=== PATIENT | male | born 1945 | race Caucasian/White ===

== ENCOUNTER 2017-07-28 09:16 | Inpatient (IN) | payer MEDICARE, OTHER ==
[~2017-07-28 09:16] MED LIST: CEFAZOLIN 1 GM INJ; NALOXONE (0.4 MG/ML) INJ IV; SUCCINYLCHOLINE CHLORIDE 100 MG/5 ML SYG IV
[2017-07-28] MEDS ORDERED: NEOSTIGMINE 3 MG/3 ML SYRINGE (09:48)
[2017-07-28] MEDS ORDERED: PROPOFOL 20 ML (09:48)
[2017-07-28] MEDS ORDERED: LIDOCAINE 2% (SDV) 5 ML INJ (09:49)
[2017-07-28] MEDS ORDERED: GLYCOPYRROLATE 0.4 MG INJ (09:49)
[2017-07-28] MEDS ORDERED: ROCURONIUM 50 MG INJ (09:49)
[2017-07-28] MEDS ORDERED: DEXAMETHASONE 4 MG/ML 1 ML INJ (09:49)
[2017-07-28] MEDS ORDERED: MIDAZOLAM 1 MG/ML 2 ML INJ (09:49)
[2017-07-28] MEDS ORDERED: FENTAnyl 50 MCG/ML VIAL ×2 (09:49→14:57)
[2017-07-28] MEDS ORDERED: ONDANSETRON 4 MG INJ (09:49)
[2017-07-28] MEDS: CEFAZOLIN 2 GM/50 ML (PMX) 50 ML IVPB (10:00)
[2017-07-28] MEDS ORDERED: LACTATED RINGER'S 1,000 ML IV* (10:00)
[2017-07-28] MEDS: BUPIVACAINE 0.5%/EPI (SDV) 30 ML INJ (13:39)
[2017-07-28] MEDS: SURGIFOAM POWDER 1 GM KIT (13:39)
[2017-07-28] MEDS: THROMBIN 5000 UNIT VIAL (13:40)
[2017-07-28] MEDS: POLYMYXIN/BACITRACIN 1L IRRIG IRR (13:40)
[2017-07-28] MEDS: HEPARIN 1000 UNITS/ML 10 ML INJ (13:40)
[2017-07-28] MEDS: CA CHLORIDE 10% 10 ML SYRINGE (13:45)
[2017-07-28] MEDS ORDERED: LIDOCAINE 4% CR (14:36)
[2017-07-28] MEDS ORDERED: SUGAMMADEX SODIUM 200 MG/2 ML VIAL IV (14:39)
[2017-07-28] MEDS ORDERED: FLUMAZENIL 0.5 MG INJ (16:22)
[2017-07-28] MEDS ORDERED: HYDROmorphONE 0.5 MG/0.5 ML SYG IV (16:30)
[2017-07-28] MEDS ORDERED: NALOXONE (0.4 MG/ML) INJ IV (16:30)
[2017-07-28] MEDS ORDERED: OXYCODONE/ACETAMINOPHEN (10/325) TAB PO ×2 (16:30)
[2017-07-28] MEDS ORDERED: DIPHENHYDRAMINE 50 MG INJ IV (16:30)
[2017-07-28] MEDS ORDERED: AL HYDROX/MG HYDROX/SIMETH 30 ML CUP PO (16:30)
[2017-07-28] MEDS ORDERED: ZOLPIDEM 5 MG TAB PO (16:30)
[2017-07-28] MEDS: CEFAZOLIN 1 GM/50 ML (PMX) 50 ML IVPB ×2 (16:30→23:50)
[2017-07-28] MEDS ORDERED: BISACODYL 10 MG SUPP PR (16:30)
[2017-07-28] MEDS ORDERED: ACETAMINOPHEN 325 MG TAB PO (16:30)
[2017-07-28] MEDS ORDERED: CEPASTAT LOZENGE MT (16:30)
[2017-07-28] MEDS: BUPIVACAINE 0.25% (MPF) 30 ML INJ (16:49)
[2017-07-28] MEDS: FENTAnyl 50 MCG/ML VIAL (16:49)
[2017-07-28] MEDS: HYDROmorphONE 0.2 MG/ML PCA IV ×2 (16:58→23:42)
[2017-07-28] MEDS: D5W-0.45 NACL + KCL 20 MEQ 1,000 ML IV (18:09)
[2017-07-28] MEDS: CYCLOBENZAPRINE 10 MG TAB PO (18:09)
[2017-07-28] MEDS: DOCUSATE SODIUM 100 MG CAP PO (20:47)
[2017-07-29] MEDS: D5W-0.45 NACL + KCL 20 MEQ 1,000 ML IV ×3 (02:24→16:49)
[2017-07-29 05:12] LABS: ADD MAN DIFF? NO
[2017-07-29] MEDS: PANTOPRAZOLE 40 MG INJ IV (05:18)
[2017-07-29 05:19] LABS: BASOPHILS % 0.1 % (0.0-2.0); HEMATOCRIT 38.7 % (42.0-52.0); HEMOGLOBIN 13.2 g/dl (14.0-18.0); LYMPHOCYTES # 1.1 10^3/ul (0.8-2.9); LYMPHOCYTES % 7.4 % (15.0-51.0); MEAN CORPUSCULAR HEMOGLOBIN 30.9 pg (29.0-33.0); MEAN CORPUSCULAR HGB CONC 34.1 g/dl (32.0-37.0); MEAN CORPUSCULAR VOLUME 90.6 fl (82.0-101.0); MEAN PLATELET VOLUME 10.2 fl (7.4-10.4); MONOCYTE # 0.9 10^3/ul (0.3-0.9); MONOCYTES % 5.9 % (0.0-11.0); NEUTROPHIL # 12.4 10^3/ul (1.6-7.5); PLATELET COUNT 251 10^3/UL (140-415); RED BLOOD COUNT 4.27 10^6/ul (4.70-6.10); RED CELL DISTRIBUTION WIDTH 12.2 % (11.5-14.5)
[2017-07-29 05:19] LABS: WHITE BLOOD COUNT 14.4 10^3/ul (4.8-10.8)
[2017-07-29 05:51] LABS: ANION GAP 10 (8-16); BLOOD UREA NITROGEN 15 mg/dl (7-20); CALCIUM 8.5 mg/dl (8.4-10.2); CARBON DIOXIDE 25 mmol/L (21-31); CHLORIDE 108 mmol/L (97-110); CREATININE 0.97 mg/dl (0.61-1.24); GLUCOSE 141 mg/dl (70-220); MAGNESIUM 1.8 mg/dl (1.7-2.5); POTASSIUM 4.8 mmol/L (3.5-5.1); SODIUM 138 mmol/L (135-144)
[2017-07-29] MEDS: DOCUSATE SODIUM 100 MG CAP PO ×2 (08:50→21:14)
[2017-07-29] MEDS: CEFAZOLIN 1 GM/50 ML (PMX) 50 ML IVPB (08:51)
[2017-07-29] MEDS: HYDROmorphONE 0.2 MG/ML PCA IV (11:25)
[2017-07-29] MEDS: ONDANSETRON 4 MG INJ IV (15:44)
[2017-07-29] MEDS: METOCLOPRAMIDE 10 MG INJ IV (18:16)
[2017-07-29] MEDS: TAMSULOSIN (SR) 0.4 MG CAP PO (21:14)
[2017-07-30] MEDS: METOCLOPRAMIDE 10 MG INJ IV (01:41)
[2017-07-30] MEDS: D5W-0.45 NACL + KCL 20 MEQ 1,000 ML IV ×3 (01:41→15:37)
[2017-07-30] MEDS: PANTOPRAZOLE 40 MG INJ IV (04:40)
[2017-07-30 05:13] LABS: ADD MAN DIFF? NO
[2017-07-30 05:14] LABS: BASOPHILS % 0.2 % (0.0-2.0); EOSINOPHILS # 0.1 10^3/ul (0.0-0.5); EOSINOPHILS % 0.4 % (0.0-7.0); HEMATOCRIT 38.8 % (42.0-52.0); HEMOGLOBIN 13.3 g/dl (14.0-18.0); LYMPHOCYTES # 1.9 10^3/ul (0.8-2.9); LYMPHOCYTES % 13.3 % (15.0-51.0); MEAN CORPUSCULAR HEMOGLOBIN 31.5 pg (29.0-33.0); MEAN CORPUSCULAR HGB CONC 34.3 g/dl (32.0-37.0); MEAN CORPUSCULAR VOLUME 91.9 fl (82.0-101.0); MEAN PLATELET VOLUME 10.1 fl (7.4-10.4); MONOCYTE # 1.2 10^3/ul (0.3-0.9); MONOCYTES % 8.4 % (0.0-11.0); NEUTROPHIL # 10.8 10^3/ul (1.6-7.5); NEUTROPHILS % 77.3 % (39.0-77.0); PLATELET COUNT 220 10^3/UL (140-415); RED BLOOD COUNT 4.22 10^6/ul (4.70-6.10); RED CELL DISTRIBUTION WIDTH 12.3 % (11.5-14.5)
[2017-07-30 05:58] LABS: ANION GAP 8 (8-16); BLOOD UREA NITROGEN 17 mg/dl (7-20); CALCIUM 8.1 mg/dl (8.4-10.2); CARBON DIOXIDE 29 mmol/L (21-31); CHLORIDE 104 mmol/L (97-110); CREATININE 0.98 mg/dl (0.61-1.24); GLUCOSE 117 mg/dl (70-220); MAGNESIUM 1.8 mg/dl (1.7-2.5); POTASSIUM 4.3 mmol/L (3.5-5.1); SODIUM 137 mmol/L (135-144)
[2017-07-30] MEDS: DOCUSATE SODIUM 100 MG CAP PO (09:01)
== END 2017-07-30 18:45 | disposition home or self-care (01) | DRG 460 ==
LOC: REC 09:16 → MS1 17:45
PROC: 0SG3071 Fusion of Lumbosacral Joint with Autologous Tissue Substitute, Posterior Approach, Posterior Column, Open Approach (ICD-10-PCS; principal; 2017-07-28 12:00)
PROC: 01NB0ZZ Release Lumbar Nerve, Open Approach (ICD-10-PCS; 2017-07-28 12:00)
PROC: 0SP304Z Removal of Internal Fixation Device from Lumbosacral Joint, Open Approach (ICD-10-PCS; 2017-07-28 12:00)
PROC: 07DR3ZZ Extraction of Iliac Bone Marrow, Percutaneous Approach (ICD-10-PCS; 2017-07-28 12:00)
DX: M96.0 Pseudarthrosis after fusion or arthrodesis (principal); M43.17 Spondylolisthesis, lumbosacral region; R33.9 Retention of urine, unspecified; M51.17 Intervertebral disc disorders with radiculopathy, lumbosacral region
CPT/HCPCS: 72110; 80048; 83735; 85025; 86999; 87086; 88300; 88304; 88311; 97116; 97162